=== PATIENT | male | born 1945 | race Caucasian/White ===

== ENCOUNTER 2016-06-14 11:12 | Outpatient (CLI) | payer MEDICARE ==
[~2016-06-14 11:12] MED LIST: ASPI-605 PO; CHOL100044 PO; HYDR-552 PO; METO25TA20 PO; Nitroglycerin SL; SIMV20TA6 PO; ZOLP5TAB2 PO
[2016-06-14] MEDS ORDERED: REGADENOSON 0.4 MG/5 ML DISP.SYRIN IVP ONE (12:30)
== END 2016-06-14 23:59 | disposition home or self-care (01) ==
LOC: NM 11:12
PROVIDERS: ATTEND Internal Medicine Cardiovascular Disease
DX: R07.9 Chest pain, unspecified (principal)
CPT/HCPCS: 78451; A9502; J2785